=== PATIENT | male | born 1975 | race Caucasian/White ===

== ENCOUNTER 2017-10-27 19:03 | Emergency (ER) | payer BC, OTHER ==
[2017-10-27 19:20] VITALS: BP 166/92; PULSE 70; TEMP 97.7; BMI 35.6
--- NOTE | 2017-10-27 19:21 | PDOC ---
Rapid Medical Evaluation Chief Complaint: Back Pain Time Seen by Provider: 10/27/17 19:15 Medical Evaluation: Allergies Allergy/AdvReac Type Severity Reaction Status Date / Time coconut oil Allergy Difficulty Verified 11/29/13 14:36 Breathing 10/27/17 19:16 C/O HURT LOWER Back at times radiating to left leg after picking up heavy object at work 2 weeks ago. works in sanitation department. pmd gave diclofenac , tramadol and flexeril. patient reports no pain relief. PE: patient alert ox3. no midline tenderness . + pain with movement to left lower back A: lower back pain P: xray patient to the ER for further management of care.
--- NOTE | 2017-10-27 20:12 | PDOC ---
History of Present Illness - General Chief Complaint: Back Pain Stated Complaint: BACK PAIN Time Seen by Provider: 10/27/17 19:15 - History of Present Illness Initial Comments: 42-year-old male with a past medical history of asthma presents for evaluation of lower back pain with left lower extremity radiation. No loss of bowel or bladder function no other associated symptoms. Card about a week ago while lifting something at work. 10/27/17 20:09 Past History - Past Medical History Allergies/Adverse Reactions: Allergies Allergy/AdvReac Type Severity Reaction Status Date / Time coconut oil Allergy Difficulty Verified 10/27/17 19:15 Breathing Home Medications: Ambulatory Orders Albuterol 0.083% Nebulizer Molly [Ventolin 0.083% Nebulizer Soln -] 1 neb NEB Q6H #30 vial 12/03/14 Albuterol Sulfate Inhaler - [Ventolin HFA Inhaler -] 1 - 2 inh PO PRN 12/03/14 Ipratropium 0.02% Nebulizer [Atrovent 0.02% Nebulizer -] 1 neb NEB QID #40 vial 12/03/14 Montelukast Na [Singulair -] 10 mg PO HS 12/03/14 Cyclobenzaprine HCl [Flexeril 10 mg] 10 mg PO BID PRN 10/27/17 Diclofenac Sodium [Voltaren -] 75 mg PO BID 10/27/17 Methylprednisolone [Medrol Dose Kian] 4 mg PO ASDIR #21 tablet 10/27/17 traMADol HCL [Ultram] 50 mg PO Q8H PRN 10/27/17 Asthma: Yes COPD: No - Immunization History Immunization Up to Date: Yes - Suicide/Smoking/Psychosocial Hx Smoking Status: No Smoking History: Never smoked Number of Cigarettes Smoked Daily: 0 Hx Alcohol Use: No Drug/Substance Use Hx: No Substance Use Type: None Review of Systems - Review of Systems Musculoskeletal: Yes: Back Pain All Other Systems: Reviewed and Negative *Physical Exam - Vital Signs Last Vital Signs Temp Pulse Resp BP Pulse Ox 97.7 F 70 16 166/92 98 10/27/17 19:17 10/27/17 19:17 10/27/17 19:17 10/27/17 19:17 10/27/17 19:17 - Physical Exam Comments: Lumbar spine skin color and temperature are normal. There is increased nonpainful range of motion. 5 out of 5 strength in bilateral lower extremities. Patella and Achilles reflexes are 2+ and symmetric bilaterally. There is no clonus. Straight leg raise test is positive on the left negative on the right. Thighs and calves are soft and nontender. There are no gross sensory motor deficits. Neurovascularly intact. 10/27/17 20:10 Medical Decision Making - Medical Decision Making Lumbar spine x-rays were reviewed 10/27/17 20:11 *DC/Admit/Observation/Transfer Diagnosis at time of Disposition: Back pain, Lumbar radiculitis - Discharge Dispostion Disposition: HOME Condition at time of disposition: Stable Decision to Admit order: No - Prescriptions Prescriptions: Methylprednisolone [Medrol Dose Kian] 4 mg PO ASDIR #21 tablet - Referrals Referrals: Lucas Pal MD [Primary Care Provider] - Lev Pires MD [Staff Physician] - - Patient Instructions Printed Discharge Instructions: Lumbar Radiculopathy, DI for Lumbar Radiculopathy Additional Instructions: Return to the emergency room if your symptoms worsen or go unresolved prior to follow-up with orthopedic surgery. It is important few to stop taking the anti- inflammatory nabumetone I prescribed steroid pack which she will start tomorrow morning. Follow-up with orthopedics within next 2-3 days. - Post Discharge Activity
== END 2017-10-27 20:17 | disposition home or self-care (01) ==
LOC: JERFT 19:03
DX: M54.16 Radiculopathy, lumbar region (principal); X50.0XXA Overexertion from strenuous movement or load, initial encounter; Y93.H9 Activity, other involving exterior property and land maintenance, building and construction; Y92.89 Other specified places as the place of occurrence of the external cause; Y99.0 Civilian activity done for income or pay
CPT/HCPCS: 72100-TC-FY; 99281-25

== ENCOUNTER 2019-01-18 01:57 | Emergency (ER) | payer BC, OTHER ==
[2019-01-18 02:24] VITALS: BP 148/90; PULSE 79; TEMP 97.6; BMI 36.8
--- NOTE | 2019-01-18 02:40 | PDOC ---
*Physical Exam - Vital Signs Last Vital Signs Temp Pulse Resp BP Pulse Ox 97.6 F 79 18 148/90 97 01/18/19 02:21 01/18/19 02:21 01/18/19 02:21 01/18/19 02:21 01/18/19 02:21 Medical Decision Making - Medical Decision Making 01/18/19 02:40 Patient seen by the advanced practice provider under my direct supervision. Ancillary testing reviewed as necessary. I agree with plan as outlined by the advanced practice provider. *DC/Admit/Observation/Transfer Diagnosis at time of Disposition: Left shoulder pain Qualifiers: Chronicity: acute Qualified Code(s): M25.512 - Pain in left shoulder Back pain Qualifiers: Back pain location: low back pain Chronicity: unspecified Back pain laterality : unspecified Sciatica presence: without sciatica Qualified Code(s): M54.5 - Low back pain - Prescriptions Prescriptions: Ibuprofen 800 mg PO QID PRN #20 tablet PRN Reason: Pain - Referrals Referrals: Lucas Pal MD [Primary Care Provider] - - Patient Instructions Printed Discharge Instructions: DI for Shoulder Pain Additional Instructions: apply ice to the area, keep in sling take ibuprofen every 6 hours as needed for pain follow up with an orthopedic doctor as soon as possible.e - Post Discharge Activity Forms/Work/School Notes: Back to Work
[2019-01-18] MEDS ORDERED: KETOROLAC TROMETHAMINE 30 MG/1 ML VIAL IM ONE (03:58)
--- NOTE | 2019-01-18 04:04 | PDOC ---
History of Present Illness - General Chief Complaint: Pain, Acute Stated Complaint: SHOULDER/ARM INJURY Time Seen by Provider: 01/18/19 02:37 History Source: Patient - History of Present Illness Initial Comments: 01/18/19 03:59 43 year old male s/p slip and fall at work c/o left shoulder and left sided lower back pain. full rom pain to shoulder with movement. no midline tenderness Past History - Past Medical History Allergies/Adverse Reactions: Allergies Allergy/AdvReac Type Severity Reaction Status Date / Time coconut oil Allergy Difficulty Verified 01/18/19 02:23 Breathing Home Medications: Ambulatory Orders Albuterol 0.083% Nebulizer Molly [Ventolin 0.083% Nebulizer Soln -] 1 neb NEB Q6H #30 vial 12/03/14 Albuterol Sulfate Inhaler - [Ventolin HFA Inhaler -] 1 - 2 inh PO PRN 12/03/14 Ipratropium 0.02% Nebulizer [Atrovent 0.02% Nebulizer -] 1 neb NEB QID #40 vial 12/03/14 Montelukast Na [Singulair -] 10 mg PO HS 12/03/14 Cyclobenzaprine HCl [Flexeril 10 mg] 10 mg PO BID PRN 10/27/17 Diclofenac Sodium [Voltaren -] 75 mg PO BID 10/27/17 Methylprednisolone [Medrol Dose Kian] 4 mg PO ASDIR #21 tablet 10/27/17 traMADol HCL [Ultram] 50 mg PO Q8H PRN 10/27/17 Ibuprofen 800 mg PO QID PRN #20 tablet 01/18/19 Asthma: Yes COPD: No - Immunization History Immunization Up to Date: Yes - Suicide/Smoking/Psychosocial Hx Smoking Status: No Smoking History: Unknown if ever smoked Number of Cigarettes Smoked Daily: 0 Hx Alcohol Use: No Drug/Substance Use Hx: No Substance Use Type: None Review of Systems - Review of Systems Able to Perform ROS?: Yes Is the patient limited Bel[place]ian proficient: No Constitutional: No: Symptoms Reported, See HPI, Chills, Diaphoresis, Fever, Loss of Appetite, Malaise, Night Sweats, Weakness, Weight Stable, Unintentional Wgt. Loss, Unexplained wgt Loss, Other Musculoskeletal: Yes: Other (shoulder pain) *Physical Exam - Vital Signs Last Vital Signs Temp Pulse Resp BP Pulse Ox 97.6 F 79 18 148/90 97 01/18/19 02:21 01/18/19 02:21 01/18/19 02:21 01/18/19 02:21 01/18/19 02:21 - Physical Exam General Appearance: Yes: Appropriately Dressed Musculoskeletal: positive: Decreased Range of Motion, Other (able to raise arm, able to make a fist, ). negative: Vertebral Tenderness (left sided lower back pain worse with movement. no flank pain, no bruising noted) ED Treatment Course - RADIOLOGY Radiology Studies Ordered: Category Date Time Status SHOULDER-LEFT [RAD] Stat Radiology 01/18/19 02:37 Taken Progress Note - Progress Note Progress Note: A: left shoulder pain; low back pain P: xray: NSaids ortho follow up RICE *DC/Admit/Observation/Transfer Diagnosis at time of Disposition: Left shoulder pain Qualifiers: Chronicity: acute Qualified Code(s): M25.512 - Pain in left shoulder Back pain Qualifiers: Back pain location: low back pain Chronicity: unspecified Back pain laterality : unspecified Sciatica presence: without sciatica Qualified Code(s): M54.5 - Low back pain - Prescriptions Prescriptions: Ibuprofen 800 mg PO QID PRN #20 tablet PRN Reason: Pain - Referrals Referrals: Lucas Pal MD [Primary Care Provider] - Vaughn Molina MD [Staff Physician] - Call tomorrow - Patient Instructions Printed Discharge Instructions: DI for Shoulder Pain Additional Instructions: apply ice to the area, keep in sling take ibuprofen every 6 hours as needed for pain follow up with an orthopedic doctor as soon as possible.e - Post Discharge Activity Forms/Work/School Notes: Back to Work
[2019-01-18] MEDS ORDERED: KETOROLAC TROMETHAMINE 30 MG/1 ML VIAL ONE (04:07)
== END 2019-01-18 04:17 | disposition home or self-care (01) ==
LOC: JER 01:57
PROC: 3E0233Z Introduction of Anti-inflammatory into Muscle, Percutaneous Approach (ICD-10-PCS; principal; 2019-01-18)
DX: M25.512 Pain in left shoulder (principal); M54.5 Low back pain; W01.0XXA Fall on same level from slipping, tripping and stumbling without subsequent striking against object, initial encounter; Y93.89 Activity, other specified; Y92.69 Other specified industrial and construction area as the place of occurrence of the external cause; Y99.0 Civilian activity done for income or pay
CPT/HCPCS: 73030-TC-LT-FY; 99281-25

== ENCOUNTER 2024-07-27 18:25 | Emergency (ER) | payer BC, OTHER ==
[2024-07-27 18:42] VITALS: RESP 18; TEMP 98.9; BMI 37.6
[2024-07-27] MEDS ORDERED: IBUPROFEN 600 MG TABLET (FP) PO ONE (19:50)
[2024-07-27] MEDS: IBUPROFEN 600 MG TABLET (FP) PO ONE (20:02)
[2024-07-27 20:05] VITALS: BP 138/71; PULSE 67
== END 2024-07-27 20:14 | disposition home or self-care (01) ==
LOC: JER 18:25
DX: R00.2 Palpitations (principal); R07.9 Chest pain, unspecified
CPT/HCPCS: 99283-25